=== PATIENT | male | born 1985 | race African-American/Black ===

== ENCOUNTER 2016-07-23 21:18 | Emergency (ER) | payer SELFPAY ==
[2016-07-23] MEDS ORDERED: NO HOME MEDICATION (21:31)
[2016-07-23] MEDS ORDERED: NORCO 5/3251 TAB PO (22:56)
== END 2016-07-23 23:05 ==
LOC: EDMED 21:18
DX: S69.92XA Unspecified injury of left wrist, hand and finger(s), initial encounter (principal); F17.210 Nicotine dependence, cigarettes, uncomplicated; X50.1XXA Overexertion from prolonged static or awkward postures, initial encounter; Y93.89 Activity, other specified; Y92.69 Other specified industrial and construction area as the place of occurrence of the external cause; Y99.0 Civilian activity done for income or pay